=== PATIENT | male | born 1940 | race African-American/Black ===

== ENCOUNTER 2017-04-29 11:30 | Emergency (ER) | payer MEDICARE, MEDICAID ==
[~2017-04-29] VITALS: Ht 177.8 cm; Wt 80.0 kg
[2017-04-29 12:55] LABS: BASOPHILS % 1.2 % (0.0-2.0); EOSINOPHILS % 1.5 % (0.0-5.0); HEMATOCRIT. 40.4 % (42.0-52.0); HEMOGLOBIN. 12.8 g/dL (14.0-18.0); LYMPHOCYTES % 24.4 % (20.0-50.0); MEAN CORPUSCULAR HEMOGLOBIN 22.4 pg (28.0-32.0); MEAN CORPUSCULAR VOLUME 70.5 fL (80.0-94.0); MEAN PLATELET VOLUME 9.4 fl (7.4-10.4); NEUTROPHILS % 60.9 % (40.0-76.0); PLATELET 131 x1000/uL (130-400); RED BLOOD CELL COUNT 5.73 mill/uL (4.7-6.1); RED CELL DISTRIBUTION WIDTH 16.4 % (11.6-14.6)
[2017-04-29 12:59] LABS: CHLORIDE 101 mEq/L (98-107)
[2017-04-29 13:07] LABS: CARBON DIOXIDE 33 mEq/L (21-32)
[2017-04-29 14:45] LABS: CLARITY URINE CLEAR (CLEAR); COLOR URINE YELLOW (YELLOW); GLUCOSE URINE NEGATIVE (NEGATIVE); KETONES URINE NEGATIVE (NEGATIVE); LEUKOCYTE ESTERASE URINE NEGATIVE (NEGATIVE); NITRITE URINE NEGATIVE (NEGATIVE); OCCULT BLOOD URINE NEGATIVE (NEGATIVE); PROTEIN URINE NEGATIVE (NEGATIVE); SPECIFIC GRAVITY URINE 1.013 (1.005-1.030); UROBILINOGEN URINE 0.2 E.U./dL (0.2-1.0)
[2017-04-29 20:03] VITALS: BP 145/60
== END 2017-04-29 20:05 | disposition home or self-care (01) ==
LOC: ER 11:35
DX: N43.3 Hydrocele, unspecified (principal); R32 Unspecified urinary incontinence; I10 Essential (primary) hypertension; Z86.73 Personal history of transient ischemic attack (TIA), and cerebral infarction without residual deficits
CPT/HCPCS: 36415; 51702; 76870; 80053; 81003; 85025; 93976; 99285; A4315

== ENCOUNTER 2017-08-28 12:15 | Emergency (ER) | payer MEDICARE, MEDICAID ==
[~2017-08-28] VITALS: Ht 175.3 cm; Wt 90.0 kg
[2017-08-28 12:51] LABS: BASOPHILS % 1.2 % (0.0-2.0); EOSINOPHILS % 0.7 % (0.0-5.0); HEMATOCRIT. 40.7 % (42.0-52.0); HEMOGLOBIN. 12.8 g/dL (14.0-18.0); LYMPHOCYTES % 15.5 % (20.0-50.0); MEAN CORPUSCULAR HEMOGLOBIN 22.6 pg (28.0-32.0); MEAN PLATELET VOLUME 8.6 fl (7.4-10.4); MONOCYTES % 14.8 % (2.0-8.0); NEUTROPHILS % 67.8 % (40.0-76.0); PLATELET 204 x1000/uL (130-400); RED BLOOD CELL COUNT 5.66 mill/uL (4.7-6.1); RED CELL DISTRIBUTION WIDTH 15.7 % (11.6-14.6)
[2017-08-28 12:56] LABS: CHLORIDE 102 mEq/L (98-107)
[2017-08-28 12:57] LABS: INR 1.1; PROTHROMBIN TIME 11.1 sec (9.4-11.6)
[2017-08-28 13:03] LABS: CARBON DIOXIDE 31 mEq/L (21-32); ETHANOL BLOOD < 10 mg/dL
[2017-08-28 13:05] LABS: CREATINE KINASE 384 IU/L (39-308)
[2017-08-28] MEDS ORDERED: SODIUM CHLORIDE 0.9% 1,000 ML IV ONE (16:45)
[2017-08-29 10:52] VITALS: BP 151/81
== END 2017-08-29 11:01 | disposition home or self-care (01) ==
LOC: ER 12:58
DX: M62.82 Rhabdomyolysis (principal); R42 Dizziness and giddiness; E11.9 Type 2 diabetes mellitus without complications; I10 Essential (primary) hypertension; Z86.73 Personal history of transient ischemic attack (TIA), and cerebral infarction without residual deficits
CPT/HCPCS: 36415; 71045; 80053; 82550; 85025; 85610; 93005; 96360; 99285; G0482; J7030

== ENCOUNTER 2018-11-26 22:06 | Inpatient (IN) | payer MEDICARE ==
[~2018-11-26] VITALS: Ht 182.9 cm; Wt 90.3 kg
[2018-11-26 21:30] VITALS: BP 129/77
[2018-11-26 22:00] VITALS: BP 129/77
[2018-11-27] VITALS: BP 123/80
[2018-11-27] MEDS ORDERED: ACET-2178 PO (00:15)
[2018-11-27] MEDS ORDERED: SENN-170 PO (00:15)
[2018-11-27] MEDS ORDERED: MOM PO (00:15)
[2018-11-27] MEDS ORDERED: TAMS0.4C31 PO (00:15)
[2018-11-27] MEDS ORDERED: CRAN450T10 PO (00:15)
[2018-11-27] MEDS ORDERED: MAGNESIUM/ALUMINUM HYDROXIDE/SIMETHICONE 30ML UDC PO PRN (00:30)
[2018-11-27] MEDS ORDERED: CLONIDINE 0.1MG TABLET PO PRN (00:30)
[2018-11-27] MEDS ORDERED: DIPHENHYDRAMINE 50MG/ML VIAL IV PRN (00:30)
[2018-11-27] MEDS ORDERED: DOCUSATE SODIUM 100MG CAPSULE PO PRN (00:30)
[2018-11-27] MEDS ORDERED: ONDANSETRON HCL 4MG/2ML INJ IV PRN (00:30)
[2018-11-27] MEDS ORDERED: HYDROCODONE/ACETAMINOPHEN 5/325MG TABLET PO PRN (00:30)
[2018-11-27 02:05] LABS: CLARITY URINE TURBID (CLEAR); COLOR URINE YELLOW (YELLOW); KETONES URINE NEGATIVE (NEGATIVE); LEUKOCYTE ESTERASE URINE 3+ (NEGATIVE); NITRITE URINE POSITIVE (NEGATIVE); OCCULT BLOOD URINE 1+ (NEGATIVE); PROTEIN URINE TRACE (NEGATIVE); SPECIFIC GRAVITY URINE 1.019 (1.005-1.030); UROBILINOGEN URINE 0.2 E.U./dL (0.2-1.0)
[2018-11-27 04:00] VITALS: BP 126/77
[2018-11-27 08:00] VITALS: BP 125/78
[2018-11-27] MEDS: TAMSULOSIN HCL 0.4MG SR CAPSULE PO SCH (09:05)
[2018-11-27 09:42] LABS: HEMATOCRIT 34.1 % (42.0-52.0); HEMOGLOBIN 10.9 g/dL (14.0-18.0); MEAN CORPUSCULAR HEMOGLOBIN 22.3 pg (28.0-32.0); MEAN CORPUSCULAR VOLUME 69.5 fL (80.0-94.0); PLATELET 249 x1000/uL (130-400); RED CELL DISTRIBUTION WIDTH 17.3 % (11.6-14.6)
[2018-11-27 09:56] LABS: CHLORIDE 101 mEq/L (98-107)
[2018-11-27] MEDS: CEFTRIAXONE 1 G PREMIX 50 ML IV SCH (13:51)
[2018-11-27] MEDS ORDERED: ENOXAPARIN 100MG/ML SYR SUBCUT SCH (14:30)
[2018-11-27 16:19] LABS: INR 1.1; PROTHROMBIN TIME 11.4 sec (9.6-11.0)
[2018-11-27] MEDS ORDERED: ENOXAPARIN 40MG/0.4ML SYR SUBCUT SCH (17:00)
[2018-11-27 20:00] VITALS: BP 127/76
[2018-11-27] MEDS: ENOXAPARIN 100MG/ML SYR SUBCUT SCH (22:38)
[2018-11-27] MEDS: ACETAMINOPHEN 325MG TABLET PO PRN (23:01)
[2018-11-28] VITALS: BP 120/75
[2018-11-28 04:00] VITALS: BP 132/82
[2018-11-28 06:51] LABS: BASOPHILS % 0.7 % (0.0-2.0); EOSINOPHILS % 1.4 % (0.0-5.0); HEMATOCRIT. 34.7 % (42.0-52.0); HEMOGLOBIN. 10.9 g/dL (14.0-18.0); LYMPHOCYTES % 15.6 % (20.0-50.0); MEAN CORPUSCULAR HEMOGLOBIN 22.1 pg (28.0-32.0); MEAN CORPUSCULAR VOLUME 70.2 fL (80.0-94.0); MEAN PLATELET VOLUME 8.3 fl (7.4-10.4); MONOCYTES % 11.5 % (2.0-8.0); NEUTROPHILS % 70.8 % (40.0-76.0); PLATELET 259 x1000/uL (130-400); RED BLOOD CELL COUNT 4.94 mill/uL (4.7-6.1); RED CELL DISTRIBUTION WIDTH 17.4 % (11.6-14.6)
[2018-11-28 07:11] LABS: CHLORIDE 105 mEq/L (98-107)
[2018-11-28 08:00] VITALS: BP 139/80
[2018-11-28] MEDS: TAMSULOSIN HCL 0.4MG SR CAPSULE PO SCH (09:04)
[2018-11-28] MEDS: CEFTRIAXONE 1 G PREMIX 50 ML IV SCH (09:05)
[2018-11-28] MEDS: ENOXAPARIN 100MG/ML SYR SUBCUT SCH ×2 (10:52→22:26)
[2018-11-28 12:27] VITALS: BP 127/79
[2018-11-28 16:00] VITALS: BP 121/80
[2018-11-28 20:00] VITALS: BP 102/72
[2018-11-29] VITALS: BP 110/70
[2018-11-29 04:00] VITALS: BP 134/75
[2018-11-29 06:06] LABS: BASOPHILS % 0.8 % (0.0-2.0); EOSINOPHILS % 1.2 % (0.0-5.0); HEMATOCRIT. 33.6 % (42.0-52.0); HEMOGLOBIN. 10.7 g/dL (14.0-18.0); LYMPHOCYTES % 16.5 % (20.0-50.0); MEAN CORPUSCULAR HEMOGLOBIN 22.2 pg (28.0-32.0); MEAN CORPUSCULAR VOLUME 69.4 fL (80.0-94.0); MEAN PLATELET VOLUME 8.2 fl (7.4-10.4); MONOCYTES % 10.9 % (2.0-8.0); NEUTROPHILS % 70.6 % (40.0-76.0); PLATELET 287 x1000/uL (130-400); RED BLOOD CELL COUNT 4.85 mill/uL (4.7-6.1); RED CELL DISTRIBUTION WIDTH 17.2 % (11.6-14.6)
[2018-11-29 07:19] LABS: VITAMIN B12 SERUM 1109 pg/mL (211-911)
[2018-11-29 07:52] LABS: CHLORIDE 104 mEq/L (98-107)
[2018-11-29 08:00] VITALS: BP 119/70
[2018-11-29] MEDS: TAMSULOSIN HCL 0.4MG SR CAPSULE PO SCH (08:39)
[2018-11-29 08:45] LABS: PLATELET ESTIMATE NORMAL
[2018-11-29] MEDS: CEFTRIAXONE 1 G PREMIX 50 ML IV SCH (09:20)
[2018-11-29] MEDS: APIXABAN 5 MG TABLET PO SCH ×2 (10:15→16:27)
[2018-11-29 12:26] VITALS: BP 142/82
[2018-11-29] MEDS: ACETAMINOPHEN 325MG TABLET PO PRN (15:09)
[2018-11-29 16:00] VITALS: BP 124/76
[2018-11-29] MEDS ORDERED: APIXABAN 2.5 MG TABLET PO SCH (17:00)
[2018-11-29 20:00] VITALS: BP 127/74
[2018-11-30] VITALS: BP 130/73
[2018-11-30 04:00] VITALS: BP 134/76
[2018-11-30 07:00] LABS: CHLORIDE 104 mEq/L (98-107)
[2018-11-30 07:11] LABS: BASOPHILS % 0.7 % (0.0-2.0); EOSINOPHILS % 1.7 % (0.0-5.0); HEMATOCRIT. 34.4 % (42.0-52.0); HEMOGLOBIN. 10.9 g/dL (14.0-18.0); LYMPHOCYTES % 15.6 % (20.0-50.0); MEAN CORPUSCULAR HEMOGLOBIN 22.1 pg (28.0-32.0); MEAN CORPUSCULAR VOLUME 69.5 fL (80.0-94.0); MEAN PLATELET VOLUME 8.2 fl (7.4-10.4); MONOCYTES % 10.6 % (2.0-8.0); NEUTROPHILS % 71.4 % (40.0-76.0); PLATELET 296 x1000/uL (130-400); RED BLOOD CELL COUNT 4.95 mill/uL (4.7-6.1); RED CELL DISTRIBUTION WIDTH 17.3 % (11.6-14.6)
[2018-11-30 08:00] VITALS: BP 123/72
[2018-11-30] MEDS: APIXABAN 5 MG TABLET PO SCH ×2 (08:41→16:59)
[2018-11-30] MEDS: TAMSULOSIN HCL 0.4MG SR CAPSULE PO SCH (08:43)
[2018-11-30] MEDS: ACETAMINOPHEN 325MG TABLET PO PRN ×2 (08:44→16:59)
[2018-11-30 12:00] VITALS: BP 116/74
[2018-11-30] MEDS: CEFTRIAXONE 1 G PREMIX 50 ML IV SCH (12:43)
[2018-11-30 16:00] VITALS: BP 115/70
[2018-11-30 20:00] VITALS: BP 120/74
[2018-12-01] VITALS: BP 134/82
[2018-12-01 04:00] VITALS: BP 129/78
[2018-12-01 06:46] LABS: BASOPHILS % 0.7 % (0.0-2.0); EOSINOPHILS % 1.5 % (0.0-5.0); HEMOGLOBIN. 11.5 g/dL (14.0-18.0); LYMPHOCYTES % 13.9 % (20.0-50.0); MEAN CORPUSCULAR HEMOGLOBIN 22.3 pg (28.0-32.0); MEAN CORPUSCULAR VOLUME 69.9 fL (80.0-94.0); MEAN PLATELET VOLUME 7.9 fl (7.4-10.4); MONOCYTES % 8.4 % (2.0-8.0); NEUTROPHILS % 75.5 % (40.0-76.0); PLATELET 318 x1000/uL (130-400); RED BLOOD CELL COUNT 5.15 mill/uL (4.7-6.1); RED CELL DISTRIBUTION WIDTH 17.3 % (11.6-14.6)
[2018-12-01 06:48] LABS: CHLORIDE 104 mEq/L (98-107)
[2018-12-01 08:00] VITALS: BP 123/71
[2018-12-01] MEDS: CEFTRIAXONE 1 G PREMIX 50 ML IV SCH (09:05)
[2018-12-01] MEDS: APIXABAN 5 MG TABLET PO SCH (09:05)
[2018-12-01] MEDS: TAMSULOSIN HCL 0.4MG SR CAPSULE PO SCH (09:08)
[2018-12-01 12:00] VITALS: BP 140/86
[2018-12-01 14:03] VITALS: BP 140/86
[2018-12-06] MEDS ORDERED: APIXABAN 5 MG TABLET PO SCH (09:00)
== END 2018-12-01 15:20 | DRG 871 ==
LOC: 6EST 22:06
PROVIDERS: ADMIT Family Medicine Adult Medicine; ATTEND Family Medicine Adult Medicine
DX: A41.50 Gram-negative sepsis, unspecified (principal); G92 Toxic encephalopathy; D68.59 Other primary thrombophilia; E46 Unspecified protein-calorie malnutrition; I82.413 Acute embolism and thrombosis of femoral vein, bilateral; I10 Essential (primary) hypertension; N40.1 Benign prostatic hyperplasia with lower urinary tract symptoms; N30.90 Cystitis, unspecified without hematuria; R33.8 Other retention of urine; Z87.11 Personal history of peptic ulcer disease; Z68.27 Body mass index [BMI] 27.0-27.9, adult
CPT/HCPCS: 36415; 71045; 76700; 80048; 80076; 82040; 82140; 82607; 84153; 84443; 85027; 87077; 87186; 93970; 97162; 97165; C1893; J0696; J1650; J7040; G0103